=== PATIENT | male | born 1955 | race Caucasian/White ===

== ENCOUNTER 2017-01-30 18:34 | Emergency (ER) | payer BC ==
[2017-01-30 18:43] VITALS: TEMP 97.4; BMI 19.0
[2017-01-30] MEDS ORDERED: ALBUTEROL SO4 2.5/IPRATROPIUM 0.5 INH SOL 3 ML VIAL.NEB. NEB ONE ×2 (18:53→18:55)
--- NOTE | 2017-01-30 18:53 | PDOC ---
History of Present Illness - General History Source: Patient, Old Records Exam Limitations: No Limitations - History of Present Illness Initial Comments: 01/30/17 23:16 The patient is a 61 year old male, with a significant past medical history of HTN, peg tube and trach, who presents to the emergency difficulty breathing and a chocking like sensation. The patient currently had a trach and recently had surgery. He reports that he currently has no oxygen at home. He reports that he has had this sensation multiple times in the past and he has gone to his physicians that have cleaned out his throat multiple times. The patient is unable to speak and communicates by writing things on a pad. The patient denies chest pain, headache and dizziness. Denies fever, chills, nausea, vomit, diarrhea and constipation. Denies dysuria, frequency, urgency and hematuria. Allergies: None Past surgical history: Trach, peg tube Social history: No alcohol, tobacco or drug use reported Surgeon: Dr. Greg Valentin [phone] ENT: Dr. Rene Thomas [phone] <Cabrera Sutherland - Last Filed: 01/30/17 23:16> <Anju Husain - Last Filed: 01/31/17 02:17> - General Chief Complaint: Respiratory Stated Complaint: DIFF BREATHING Time Seen by Provider: 01/30/17 18:48 Past History <Cabrera Sutherland - Last Filed: 01/30/17 23:16> - Past Medical History COPD: No HTN: Yes Other medical history: UNABLE TO OPBTAIN HX - Surgical History GI Surgery: Yes (PEG TUBE) Lung Surgery: No (TRACH) - Suicide/Smoking/Psychosocial Hx Smoking History: Never smoked Hx Alcohol Use: No Drug/Substance Use Hx: No Substance Use Type: None <Anju Husain - Last Filed: 01/31/17 02:17> - Past Medical History Allergies/Adverse Reactions: Allergies Allergy/AdvReac Type Severity Reaction Status Date / Time No Known Allergies Allergy Verified 01/30/17 21:10 Home Medications: Ambulatory Orders Unobtainable [Unobtainable] 01/30/17 Review of Systems - Review of Systems Able to Perform ROS?: Yes Comments:: 01/30/17 23:16 GENERAL/CONSTITUTIONAL: No fever or chills. No weakness. HEAD, EYES, EARS, NOSE AND THROAT: (+) Chocking sensation. No change in vision. No ear pain or discharge. No sore throat.- CARDIOVASCULAR: (+) Difficulty breathing. No chest pain RESPIRATORY: No cough, wheezing, or hemoptysis. GASTROINTESTINAL: No nausea, vomiting, diarrhea or constipation. GENITOURINARY: No dysuria, frequency, or change in urination. MUSCULOSKELETAL: No joint or muscle swelling or pain. No neck or back pain. SKIN: No rash NEUROLOGIC: No headache, vertigo, loss of consciousness, or change in strength/ sensation. ENDOCRINE: No increased thirst. No abnormal weight change HEMATOLOGIC/LYMPHATIC: No anemia, easy bleeding, or history of blood clots. ALLERGIC/IMMUNOLOGIC: No hives or skin allergy. <Cabrera Sutherland Filed: 01/30/17 23:16> *Physical Exam - Vital Signs Last Vital Signs Temp Pulse Resp BP Pulse Ox 97.4 F L 100 H 20 137/94 100 01/30/17 18:35 01/30/17 21:26 01/30/17 21:26 01/30/17 21:26 01/30/17 21:26 - Physical Exam Comments: 01/30/17 23:16 GENERAL: Awake, alert, and fully oriented, in no acute distress HEAD: No signs of trauma, normocephalic, atraumatic EYES: PERRLA, EOMI, sclera anicteric, conjunctiva clear ENT: Auricles normal inspection, hearing grossly normal, nares patent, oropharynx clear without exudates. Moist mucosa NECK: (+) Trach in place. Normal ROM, supple, no lymphadenopathy, JVD, or masses LUNGS: No distress, clear to auscultation bilaterally HEART: Regular rate and rhythm, normal S1 and S2, no murmurs, rubs or gallops, peripheral pulses normal and equal bilaterally. ABDOMEN: (+) Peg tube in place. Soft, nontender, normoactive bowel sounds. No guarding, no rebound. No masses EXTREMITIES : Normal inspection, Normal range of motion, no edema. No clubbing or cyanosis. NEUROLOGICAL: Cranial nerves II through XII grossly intact. normal gait, no focal sensorimotor deficits SKIN: Warm, Dry, normal turgor, no rashes or lesions noted. <Cabrera Sutherland Filed: 01/30/17 23:16> - Vital Signs Last Vital Signs Temp Pulse Resp BP Pulse Ox 97.4 F L 134 H 20 201/128 96 01/30/17 18:35 01/30/17 18:35 01/30/17 18:35 01/30/17 18:35 01/30/17 18:35 <RodrigueAnju Lamar - Last Filed: 01/31/17 02:17> ED Treatment Course - LABORATORY CBC & Chemistry Diagram: 01/30/17 19:30 01/30/17 19:30 - ADDITIONAL ORDERS Additional order review: Laboratory Results 01/30/17 01/30/17 01/30/17 20:58 19:30 19:30 D-Dimer 2166 H Puncture Site ABG pH ABG pCO2 at Pt Temp ABG pO2 at Pt Temp ABG HCO3 ABG O2 Sat (Measured) ABG O2 Content ABG Base Excess Mark Test O2 Delivery Device Oxygen Flow Rate Sodium 140 Potassium 3.7 Chloride 102 Carbon Dioxide 30 Anion Gap 8 BUN 20 H D Creatinine 0.6 L D Creat Clearance w eGFR > 60 Random Glucose 134 H Calcium 8.5 Total Bilirubin 0.3 AST 22 ALT 51 Alkaline Phosphatase 141 H Creatine Kinase Cancelled 52 Troponin I Cancelled < 0.02 Total Protein 7.8 Albumin 3.5 01/30/17 19:07 D-Dimer Puncture Site Right radial ABG pH 7.37 ABG pCO2 at Pt Temp 47.8 H ABG pO2 at Pt Temp 201.0 H* ABG HCO3 27.0 H ABG O2 Sat (Measured) 100.0 H* ABG O2 Content 16.3 ABG Base Excess 1.7 Mark Test Positive O2 Delivery Device Tx Oxygen Flow Rate 6l Sodium Potassium Chloride Carbon Dioxide Anion Gap BUN Creatinine Creat Clearance w eGFR Random Glucose Calcium Total Bilirubin AST ALT Alkaline Phosphatase Creatine Kinase Troponin I Total Protein Albumin 01/30/17 19:30 RBC 4.35 MCV 84.4 MCHC 32.6 RDW 15.6 MPV 8.1 Neutrophils % 82.8 Lymphocytes % 8.8 Monocytes % 7.2 Eosinophils % 0.7 Basophils % 0.5 - Medications Given in the ED: ED Medications Discontinued Medications Generic Name Dose Route Start Last Admin Trade Name Freq PRN Reason Stop Dose Admin Albuterol/Ipratropium 1 amp 01/30/17 18:53 01/30/17 18:56 Duoneb - NEB 01/30/17 18:54 1 amp ONCE ONE Administration Sodium Chloride 1,000 mls @ 1,000 mls/hr 01/30/17 21:48 01/30/17 21:59 Normal Saline - IV 01/30/17 22:47 1,000 mls/hr ASDIR STA Administration <Cabrera Sutherland - Last Filed: 01/30/17 23:16> - LABORATORY CBC & Chemistry Diagram: 01/30/17 19:30 01/30/17 19:30 <Anju Husain - Last Filed: 01/31/17 02:17> Medical Decision Making - Medical Decision Making 01/31/17 02:00 Vitals were repeated and his blood pressure was normal at the second reading I feel that his blood pressure is up because he was very anxious when he initially arrived Patient had a laryngectomy in November 2016 presented with feeling a tightness and difficulty breathing that occurred 2 hours prior to arrival. -he Did not have a fever. -There was CAT scan of the neck. This showed a small stoma in the trachea with a significant amount of debris anterior to the stoma as well as scattered in the upper thoracic and lower cervical trachea. CTA chest was negative for any pulmonary embolus . I spoke to Dr. Greg Valentin associate, Dr. 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 This often needs to be debrided when he was seen by his doctor -the debris was evacuated using sterile saline and suction and ultimately a 3 inch plug was extracted using a tweezer. No bleeding at the site.. He tolerated tita procedure well pt feels much better -he has 2 appointment s this week with his doctors IMP trachea debris/mucus plugging 01/31/17 02:13 <Anju Husain - Last Filed: 01/31/17 02:17> *DC/Admit/Observation/Transfer - Attestations Scribe Attestion: 01/30/17 23:17 Documentation prepared by Cabrera Sutherland, acting as medical records library professor for Anju Husain MD <Cabrera Sutherland - Last Filed: 01/30/17 23:16> <Anju Husain - Last Filed: 01/31/17 02:17> Diagnosis at time of Disposition: Increased tracheal secretions, Status post laryngectomy - Discharge Dispostion Disposition: HOME Condition at time of disposition: Stable - Referrals - Patient Instructions Printed Discharge Instructions: DI for Laryngectomy Additional Instructions: please remember to use humidified air at home Continue your suctioning See your doctor this week
[2017-01-30 19:16] LABS: ARTERIAL BLOOD GAS BASE EXCESS 1.7 meq/l (-2-2); ARTERIAL BLOOD GAS pH 7.37 (7.35-7.45)
[2017-01-30 19:20] LABS: ALLENS TEST POSITIVE; ART PUNCT SITE RIGHT RADIAL; LPM/O2% 6L; PT. ON O2? YES; TYPE OF O2 TX
[2017-01-30 19:44] LABS: BASOPHIL 0.5 % (0-2.0); EOSINOPHIL 0.7 % (0-4.5); MCH 27.5 pg (25.7-33.7); MCHC 32.6 g/dl (32.0-35.9); MEAN CELL VOLUME 84.4 fl (80-96); MEAN PLT VOLUME 8.1 fl (7.5-11.1); NEUTROPHILS 82.8 % (42.8-82.8); PLATELET COUNT 284 K/MM3 (134-434); RDW 15.6 % (11.9-15.9); WHITE BLOOD COUNT 5.2 K/mm3 (4.0-10.0)
[2017-01-30 20:14] LABS: ALBUMIN 3.5 g/dl (3.4-5.0); ANION GAP 8 (8-16); BILIRUBIN,TOTAL 0.3 mg/dL (0.2-1.0); CALCIUM 8.5 mg/dL (8.5-10.1); CO2 30 mmol/L (21-32); CREATININE 0.6 mg/dL (0.7-1.3); GLUCOSE,RANDOM 134 mg/dL (74-106); SGOT/AST 22 U/L (15-37); SGPT/ALT 51 U/L (12-78); TOT PROT 7.8 g/dl (6.4-8.2)
[2017-01-30 20:17] LABS: ALK PHOS 141 U/L (45-117); CPK 52 IU/L (39-308); TROPONIN I < 0.02 ng/ml (0.00-0.05)
[2017-01-30 21:08] VITALS: PULSE 100
[2017-01-30 21:27] VITALS: BP 137/94
[2017-01-30] MEDS ORDERED: SODIUM CHLORIDE 1,000 ML IV STA (21:48)
--- NOTE | 2017-02-01 01:30 | EKG ---
Test Reason : Blood Pressure : / mmHG Vent. Rate : 106 BPM Atrial Rate : 106 BPM P-R Int : 174 ms QRS Dur : 080 ms QT Int : 368 ms P-R-T Axes : 082 040 065 degrees QTc Int : 488 ms SINUS TACHYCARDIA OTHERWISE NORMAL ECG NO PREVIOUS ECGS AVAILABLE Confirmed by SHUKRI SON MD ([id number]) on 02/01/2017 1:30:27 AM Referred By: Confirmed By:SHUKRI SON MD
== END 2017-01-31 02:24 | disposition home or self-care (01) ==
LOC: JER 18:34
PROC: 3E0F7GC Introduction of Other Therapeutic Substance into Respiratory Tract, Via Natural or Artificial Opening (ICD-10-PCS; principal; 2017-01-30)
PROC: 3E0337Z Introduction of Electrolytic and Water Balance Substance into Peripheral Vein, Percutaneous Approach (ICD-10-PCS; 2017-01-30)
DX: Z43.0 Encounter for attention to tracheostomy (principal); I10 Essential (primary) hypertension; Z99.89 Dependence on other enabling machines and devices
CPT/HCPCS: 36415; 36600; 70491-TC; 71010-TC; 71275-TC; 80053; 82550; 82803; 84484; 85025; 85379; 93005; 93010; 99284-25